=== PATIENT | female | born 1950 | race Two or more races ===

== ENCOUNTER 2017-12-08 13:51 | Emergency (ER) | payer OTHER, MEDICAID ==
[~2017-12-08] VITALS: Ht 162.6 cm; Wt 68.0 kg
[2017-12-08] MEDS ORDERED: SODIUM CHLORIDE 0.9% 1,000 ML IVB ONE (15:21)
[2017-12-08] MEDS ORDERED: LORazepam 2MG/ML-1ML VIAL IV ONE (15:30)
[2017-12-08] MEDS ORDERED: PARoxetine 20 MG TAB PO ONE (15:30)
[2017-12-08 15:56] LABS: Basophils # (auto) 0.1 uL; Eosinophils # (auto) 0.3 uL; Eosinophils % (auto) 3.4 % (0.0-7.0); Hemoglobin 12.5 g/dL (12.2-16.2); Lymphocytes # (auto) 3.1 uL; Mean Corpuscular Hemoglobin 31.6 pg (28.0-32.0); Mean Corpuscular Hgb Conc. 33.8 g/dL (32.0-36.0); Mean Corpuscular Volume 93.4 fL (80.0-100.0); Monocytes # (auto) 0.7 uL; Monocytes % (auto) 6.9 % (0.0-12.0); Neutrophils # (auto) 5.3 uL; Neutrophils % (auto) 55.7 % (37.0-80.0); Platelet Count (auto) 289 10^3/uL (140-450); Red Blood Cells 3.96 10^6/uL (4.0-5.20); Red Cell Distribution Width 14.4 % (11.8-14.3); White Blood Cell 9.5 10^3/uL (4.4-10.8)
[2017-12-08 16:14] LABS: Albumin 3.5 g/dL (3.4-5.0); BUN/Creatinine Ratio 18.8; Bilirubin, Total 0.3 mg/dL (0.2-1.0); Calcium 9.1 mg/dL (8.5-10.1); Magnesium 2.5 mg/dL (1.6-2.6); Potassium 4.1 mmol/L (3.5-5.1); Total Protein 7.3 g/dL (6.4-8.2)
[2017-12-08 18:38] LABS: Urine Bacteria FEW /hpf (None Seen); Urine Blood Negative /uL (Negative); Urine Mucus FEW (None Seen); Urine Specific Gravity 1.015 (1.001-1.035); Urine WBC 5 /hpf (0 - 5)
[2017-12-09 02:02] VITALS: BP 134/59
== END 2017-12-09 02:06 | disposition home or self-care (01) ==
LOC: ER 13:51 → EDBD 13:51 → ER 12-09 02:06
DX: R07.89 Other chest pain (principal); M35.3 Polymyalgia rheumatica; R53.1 Weakness; F32.9 Major depressive disorder, single episode, unspecified; J45.909 Unspecified asthma, uncomplicated; K21.9 Gastro-esophageal reflux disease without esophagitis
CPT/HCPCS: 36415; 71046; 80053; 81001; 82550; 83735; 84443; 85025; 93005; 96374; 99285; J2060; J7030